=== PATIENT | male | born 1945 | race Caucasian/White ===

== ENCOUNTER → 2016-09-04 | Outpatient (CLI) | payer OTHER ==
[~2016-09-04] MED LIST: ALFUZOSIN HCL10 MG PO; ANDROGEL75 GM TOP; ARTIFICIAL TEAR15 M3 OPHTHALMIC; ASPIRIN EC81 M1 PO; ATENOLOL-CHLOR1 EACH PO; AZITHROMYCIN 2250 MG PO; B-100 COMPLEX100 MG PO; CALCIUM 600 MG1 EAC2 PO; CALCIUM 600 MG1 EAC3 PO; CENTRUM COMPLE1 EACH PO; COLACE100 MG PO; COUMADIN 2 MG TA2 M1 PO; COUMADIN 5 MG TA5 M1 PO; ENOXAPARIN40 MG/0.1 SUBQ; FINASTERIDE5 MG PO; FISH OIL 1,0001 EAC8 PO; KEFLEX500 MG PO; LIDODERM 5%1 PATC1 TOP; MEDROL DOSPAK21 TA1 PO; NORCO 5-325 TA1 EACH PO; PERCOCET 10-321 EACH PO; PREDNISONE 20 M20 MG PO; ROXICODONE5 M2 PO; SAW PALMETTO500 MG PO; TESTOSTERON100 MG/ML IM; TRAMADOL 50 MG50 MG PO; ZIAC 2.5/6.252.5 M1 PO; ZOCOR 20 MG TAB20 M1 PO; ZOCOR40 MG PO
== END ==
LOC: CAT 14:40
DX: J01.40 Acute pansinusitis, unspecified (principal)

== ENCOUNTER 2018-01-21 17:39 | Emergency (ER) | payer OTHER ==
[~2018-01-21] VITALS: Ht 185.4 cm; Wt 122.5 kg
[2018-01-21] MEDS ORDERED: AUGMENTIN 875-1 EACH PO (19:31)
[2018-01-21 19:39] VITALS: BP 147/79
== END 2018-01-21 19:40 | disposition home or self-care (01) ==
LOC: ER 17:39
DX: R04.0 Epistaxis (principal); I10 Essential (primary) hypertension; E78.00 Pure hypercholesterolemia, unspecified; Z96.652 Presence of left artificial knee joint; Z88.8 Allergy status to other drugs, medicaments and biological substances

== ENCOUNTER 2018-05-16 12:10 | Emergency (ER) | payer OTHER ==
[~2018-05-16] VITALS: Ht 185.4 cm; Wt 113.4 kg
[~2018-05-16 12:10] MED LIST changes: +AUGMENTIN 875-1 EACH PO
[2018-05-16 12:47] LABS: ABSOLUTE NEUTROPHILS 4.6 thou/uL (1.4-8.2); BASOPHILS 0.8 % (0.0-2.0); EOSINOPHILS 4.3 % (0.0-3.0); HEMATOCRIT 45.8 % (42.0-52.0); HEMOGLOBIN 15.9 gm/dL (14.0-18.0); LYMPHOCYTES 27.3 % (24.0-44.0); MCH 30.3 pg (26.0-34.0); MCHC 34.7 g/dL (28.0-37.0); MCV 87.6 fL (80.0-100.0); MONOCYTES 7.6 % (1.0-8.0); PLATELET COUNT 232 thou/uL (150-400); RBC 5.23 mil/uL (4.50-6.00); RDW 12.8 % (10.5-14.5); WBC 7.7 thou/uL (4.0-11.0)
[2018-05-16 12:58] LABS: CALCIUM 9.2 mg/dL (8.5-10.1); CREATININE 1.1 mg/dL (0.7-1.3); POTASSIUM 3.5 mmol/L (3.5-5.1)
[2018-05-16 13:04] LABS: TOTAL BILIRUBIN 0.6 mg/dL (<0.1-1.0); TOTAL PROTEIN 7.7 g/dL (6.4-8.2)
[2018-05-16] MEDS ORDERED: CENTRUM SILVER1 EAC2 PO (13:19)
[2018-05-16] MEDS ORDERED: FISH OIL 1,001000 M2 PO (13:20)
[2018-05-16] MEDS ORDERED: VITAMINC500 PO (13:20)
[2018-05-16] MEDS ORDERED: LUTEIN-ZEAXANT1 EACH PO (13:22)
[2018-05-16] MEDS ORDERED: GINKGO BILOBA120 M1 PO (13:23)
[2018-05-16] MEDS ORDERED: CO Q-10100 MG PO (13:23)
[2018-05-16] MEDS ORDERED: BISOPROLOL FUM2.5 MG PO (13:24)
[2018-05-16] MEDS ORDERED: VINPOCETINE1 GM PO (13:24)
[2018-05-16] MEDS ORDERED: LIPITOR 20 MG T20 M1 PO (13:25)
[2018-05-16] MEDS ORDERED: PROSCAR 5MG TABL5 MG PO (13:25)
[2018-05-16] MEDS ORDERED: FLONASE 0.05%50 MCG NASAL (13:35)
[2018-05-16] MEDS ORDERED: MELATONIN5 M1 PO (13:37)
[2018-05-16 13:38] LABS: URINE BILIRUBIN NEGATIVE (Negative); URINE BLOOD NEGATIVE (Negative); URINE CLARITY CLEAR; URINE COLOR YELLOW; URINE GLUCOSE-RANDOM* NEGATIVE (Negative); URINE KETONES NEGATIVE (Negative); URINE NITRITE-REFLEX NEGATIVE (Negative); URINE PROTEIN (DIPSTICK) NEGATIVE (Negative); URINE SPECIFIC GRAVITY <= 1.005 (1.005-1.035); URINE UROBILINOGEN 0.2 E.U./dl (0.2-1.0)
[2018-05-16] MEDS ORDERED: MINOXIDIL10 MG TOP (13:38)
[2018-05-16 13:39] LABS: URINE LEUKOCYTES-REFLEX 1+ (Negative)
[2018-05-16 13:46] LABS: CASTS None Seen /LPF (None Seen); SQUAMOUS 0-3 Few /LPF (0-3); URINE RBC None Seen /HPF (0-2); URINE WBC-REFLEX 0-5 Rare /HPF (0-5)
[2018-05-16 13:47] LABS: BACTERIA-REFLEX None Seen /HPF (None Seen); CRYSTALS None Seen /LPF (None Seen)
[2018-05-16] MEDS ORDERED: CIPROFLOXACIN500 M1 PO (15:18)
[2018-05-16 15:27] VITALS: BP 134/62
== END 2018-05-16 15:28 | disposition home or self-care (01) ==
LOC: ER 12:10
PROVIDERS: Physician Assistant
DX: R19.7 Diarrhea, unspecified (principal); I10 Essential (primary) hypertension; E78.00 Pure hypercholesterolemia, unspecified; Z96.652 Presence of left artificial knee joint; Z88.5 Allergy status to narcotic agent

== ENCOUNTER → 2018-10-17 | Outpatient (CLI) | payer OTHER ==
[~2018-10-17] MED LIST changes: +BISOPROLOL FUM2.5 MG PO; +CENTRUM SILVER1 EAC2 PO; +CIPROFLOXACIN500 M1 PO; +CO Q-10100 MG PO; +FISH OIL 1,001000 M2 PO; +FLONASE 0.05%50 MCG NASAL; +GINKGO BILOBA120 M1 PO; +LIPITOR 20 MG T20 M1 PO; +LUTEIN-ZEAXANT1 EACH PO; +MELATONIN5 M1 PO; +MINOXIDIL10 MG TOP; +PROSCAR 5MG TABL5 MG PO; +VINPOCETINE1 GM PO; +VITAMINC500 PO
== END ==
LOC: CAT 11:25
DX: Z13.6 Encounter for screening for cardiovascular disorders (principal); E78.00 Pure hypercholesterolemia, unspecified; I25.10 Atherosclerotic heart disease of native coronary artery without angina pectoris

== ENCOUNTER → 2018-12-07 | Outpatient (CLI) | payer OTHER | LOC: RAD 13:24 | DX: R07.89 Other chest pain (principal); M47.814 Spondylosis without myelopathy or radiculopathy, thoracic region ==

== ENCOUNTER → 2019-01-12 | Outpatient (CLI) | payer OTHER | LOC: MRI 09:30 | DX: M47.814 Spondylosis without myelopathy or radiculopathy, thoracic region (principal) ==

== ENCOUNTER → 2019-04-17 | Outpatient (CLI) | payer OTHER | END | disposition home or self-care (01) | LOC: SJCVC 14:36 | DX: I25.10 Atherosclerotic heart disease of native coronary artery without angina pectoris (principal); E78.00 Pure hypercholesterolemia, unspecified; I10 Essential (primary) hypertension; I71.2 Thoracic aortic aneurysm, without rupture; R93.1 Abnormal findings on diagnostic imaging of heart and coronary circulation; G47.33 Obstructive sleep apnea (adult) (pediatric); Z79.82 Long term (current) use of aspirin; Z79.899 Other long term (current) drug therapy ==

== ENCOUNTER → 2019-07-18 | Outpatient (CLI) | payer OTHER | LOC: SJCVC 15:23 | DX: R07.89 Other chest pain (principal); R93.1 Abnormal findings on diagnostic imaging of heart and coronary circulation; I10 Essential (primary) hypertension; E78.5 Hyperlipidemia, unspecified; G47.33 Obstructive sleep apnea (adult) (pediatric); E66.9 Obesity, unspecified; Z79.899 Other long term (current) drug therapy; Z96.653 Presence of artificial knee joint, bilateral ==

== ENCOUNTER → 2019-08-30 | Outpatient (CLI) | payer OTHER | LOC: SJCVCIMAG 07:18 | PROVIDERS: ATTEND Internal Medicine Cardiovascular Disease | DX: I10 Essential (primary) hypertension (principal); E78.5 Hyperlipidemia, unspecified; Z82.49 Family history of ischemic heart disease and other diseases of the circulatory system ==

== ENCOUNTER → 2020-03-18 | Outpatient (CLI) | payer OTHER | LOC: SJCVC 13:12 | PROVIDERS: ATTEND Internal Medicine Cardiovascular Disease | DX: R93.1 Abnormal findings on diagnostic imaging of heart and coronary circulation (principal); I10 Essential (primary) hypertension; E78.00 Pure hypercholesterolemia, unspecified; I35.1 Nonrheumatic aortic (valve) insufficiency; I71.2 Thoracic aortic aneurysm, without rupture; G47.33 Obstructive sleep apnea (adult) (pediatric); E78.5 Hyperlipidemia, unspecified; Z79.82 Long term (current) use of aspirin; Z79.899 Other long term (current) drug therapy; Z82.49 Family history of ischemic heart disease and other diseases of the circulatory system ==

== ENCOUNTER → 2020-06-13 | Outpatient (CLI) | payer OTHER | LOC: RAD 12:15 | PROVIDERS: ATTEND Family Medicine | DX: M25.561 Pain in right knee (principal); M25.562 Pain in left knee ==

== ENCOUNTER → 2020-10-04 | Outpatient (CLI) | payer OTHER | LOC: SJCVC 13:37 | PROVIDERS: ATTEND Internal Medicine Cardiovascular Disease | DX: I10 Essential (primary) hypertension (principal); E78.00 Pure hypercholesterolemia, unspecified; R93.1 Abnormal findings on diagnostic imaging of heart and coronary circulation; G47.33 Obstructive sleep apnea (adult) (pediatric); I71.2 Thoracic aortic aneurysm, without rupture; E78.5 Hyperlipidemia, unspecified; Z79.82 Long term (current) use of aspirin; Z79.899 Other long term (current) drug therapy; Z82.49 Family history of ischemic heart disease and other diseases of the circulatory system ==